=== PATIENT | male | born 1945 | race Caucasian/White ===

== ENCOUNTER → 2018-02-05 08:11 | Outpatient (POV) | payer MEDICARE, OTHER, SELFPAY | PROVIDERS: PCP Internal Medicine; Visit Provider Nurse Practitioner Acute Care | DX: Z00.00 Encounter for general adult medical examination without abnormal findings (principal) ==

== ENCOUNTER → 2018-09-07 10:58 | Outpatient (CLI) | payer MEDICARE, OTHER, SELFPAY ==
--- NOTE | 2018-09-07 11:00 | CT_ITS ---
CT angio head INDICATION: Severe headaches, evaluate for aneurysm ITS.REASON: HEADACHE ORDERING PHYSICIAN: Tae Nuñez PATIENT AGE: 73 years COMPARISON: None TECHNIQUE: Axial images are obtained following the intravenous administration of 100 mL of Isovue-370 contrast. Sagittal and coronal reformatted images are reviewed as well. All CT scans at the facility use one or more dose reduction, viz: automated exposure control, ma/kV adjustment per patient size (including targeted exams where dose is matched to indication, i.e. head), or iterative reconstruction technique. FINDINGS: No evidence of aneurysm, arteriovenous malformation, or major intracranial occlusive process. Anatomic variants include persistent origin of the posterior cerebral arteries and a hypoplastic A1 segment on the right. There is no evidence of sinus thrombosis. No enhancing lesions are evident. No midline shift or mass effect or hydrocephalus. There is a 2.5 cm retention cyst in the floor the left maxillary sinus and mild lobular mucosal thickening of the floor the right maxillary sinus. IMPRESSION: 1. Negative CTA of the brain. 2. Bilateral maxillary sinus disease
== END ==
PROVIDERS: PCP Internal Medicine; Visit Provider Internal Medicine
DX: R51 Headache (principal)
CPT/HCPCS: 70496; Q9967

== ENCOUNTER → 2019-03-20 13:49 | Outpatient (CLI) | payer MEDICARE, OTHER, SELFPAY ==
--- NOTE | 2019-03-20 | CA_ITS ---
PROCEDURE: 2-D M-mode and color Doppler study INDICATIONS FOR THE TEST: Chest pain COPDX Heart Murmur Tobacco SmokingEX Palpitations Fatigue Syncope Edema HypertensionXDiabetes Mellitus Rheumatic Fever SOBXDOEXObesityXHyperlipidemia Family History HD Additional History TLS/TDS SECONDARY TO MORBID OBESITY PATIENT INFORMATION HEIGHT: 70 WEIGHT:274 GENDER: Male B/P:126/83 2-D/M-MODE INTERPRETATION: 2-D MEASUREMENTS OBSERVED VALUES IN CMS Right Ventricular Dimension (RVDd) 1.3 Interventricular Septum (Thickness)(IVsd) .7 Left Ventricular Internal Dimensions(LVIDd) 3.0 Left Ventricular Posterior Wall (Thickness)(LVPWd) .7 Aortic Root 4.0 Aortic Cusp Separation 2.0 Left Atrial Dimensions (LAD) 2.5 2D 1. Left atrium is mildly enlarged, left ventricle is normal size, left ventricle wall thickness is upper limits of the normal, there is preserved left ventricular systolic function, visually estimated ejection fraction 55% with no regional wall motion abnormality. 2. The right atrium and right ventricle are mildly enlarged with normal contractility. 3. The aortic valve, mitral and tricuspid valvular grossly normal. 4. The pulmonic valve is poorly visualized. 5. No significant pericardial effusion noted. DOPPLER INTERROGATION: Doppler interrogation of the aortic, mitral and tricuspid valvular presence of mild mitral and tricuspid regurgitation, tricuspid regurgitation jet velocity is inadequate for calculation of the right ventricular systolic pressure, grade 1 diastolic dysfunction seen without tissue Doppler evidence of raised left atrial pressure. CONCLUSION: 1. Mild biatrial enlargement, normal left ventricular size, preserved left ventricular systolic function, visually estimated ejection fraction 55% with no regional wall motion abnormality, grade 1 diastolic dysfunction seen without tissue Doppler evidence of raised left atrial pressure. 2. Mild mitral and tricuspid regurgitation 3. No significant pericardial effusion noted.
[2019-03-20 15:30] VITALS: PULSE 74; PULSE 78
== END ==
PROVIDERS: PCP Internal Medicine; Visit Provider Internal Medicine
DX: R06.09 Other forms of dyspnea (principal); I10 Essential (primary) hypertension
CPT/HCPCS: 93306; 94060; 94640

== ENCOUNTER → 2019-05-07 09:54 | Outpatient (POV) | payer MEDICARE, OTHER, SELFPAY | PROVIDERS: Visit Provider Dermatology | DX: Z00.00 Encounter for general adult medical examination without abnormal findings (principal) ==

== ENCOUNTER → 2020-09-15 08:41 | Outpatient (POV) | payer MEDICARE, OTHER, SELFPAY | PROVIDERS: Visit Provider Dermatology | DX: Z00.00 Encounter for general adult medical examination without abnormal findings (principal) ==

== ENCOUNTER → 2020-09-16 09:54 | Outpatient (CLI) | payer MEDICARE, OTHER, SELFPAY ==
[2020-09-16 11:48] LABS: Coronavirus 19 IgG Antibody Negative (Negative); Coronavirus 19 IgM Antibody Negative (Negative)
== END ==
PROVIDERS: Visit Provider Internal Medicine Gastroenterology
DX: Z01.818 Encounter for other preprocedural examination (principal); Z12.11 Encounter for screening for malignant neoplasm of colon
CPT/HCPCS: 36415; 86328

== ENCOUNTER 2020-09-18 07:02 | Day surgery (SDC) | payer MEDICARE, OTHER, SELFPAY ==
[2020-09-10 15:12] VITALS: BMI 38.0
[2020-09-18] VITALS (8 sets, daily range): BP systolic 93–139; BP diastolic 46–83; PULSE 76–91; RESP 16–20; TEMP 36.2–36.7; O2SAT 90–98
--- NOTE | 2020-09-18 08:01 | HMH.ANESCL ---
[facility] Anesthesia Checklist - Patient Identification Patient Identification: Arm Band, Verbal (Name & ) - Structural Data Admitted From: Home Planned Operative Procedure/s: Colonoscopy Consent for Planned Operative Procedure(s) Verified: Yes Verified Documents: Surgical Consent, History and Physical - NPO Status Verified Time NPO: 00:00 - Chart Verification Results Verified: None - Additional verifications Anesthesia Reactions: No - Airway Assessment C-Spine Mobility Assessed: Yes TMJ Mobility Assessed: Yes Dentition: Good Dentition - Neurological Assessment Level of Consciousness: Awake, Alert, Appropriate, Follows Commands Hx Seizures: No Numbness or tingling in extremities: No - Anesthesia Plan Anesthesia Risk discussed: Yes Anesthesia Plan: Verified ASA Class: III Anesthesia Type: MAC [facility] History I have reviewed the patient's past medical history: Yes Medical History: Reports:: Chronic Obstructive Pulmonary Disease (COPD), Gastroesophageal Reflux Disease(GERD), Hyperlipidemia, Hypertension Denies:: Cancer, Diabetes Mellitus Type 1, Diabetes Mellitus Type 2, Internal Pacemaker, MRSA, Seizures *Have you ever received a pneumonia vaccine?: Yes *Have you received a flu vaccine this season?: Yes Other Medical History: Reports: Anemia Comment:: crohns, RAMIRO, obesity Anesthesia experience/problems:: None Other Surgeries: Yes: Appendectomy. No: Pacemaker Amputation: No Fractures: No - *Social History Last grade of school completed: Advanced degree Smoking Status: Former smoker Alcohol Intake: current Alcohol Intake Frequency:: holidays/special occasions only Substance Use Type: denies use *Occupational Status:: retired *Travel in the last 8 weeks: None Family Hx:: Other (NA)
--- NOTE | 2020-09-18 08:09 | HMH.PROC ---
[facility] Procedure Note Procedure Note:: Colonoscopy Procedure Report: Colonoscopy with cold snare polypectomy and cold biopsies Endoscopist: Kev Matias II, MD Referring physician: Tae Nuñez MD Date of Procedure: September 18, 2020 Equipment: Olympus 180 variable stiffness pediatric colonoscope Sedation: MAC sedation Indication: Mr. Silva is a 75-year-old gentleman here for routine screening/surveillance colonoscopy. He does have a chronic ulcerative colitis that was diagnosed more than 2 decades ago. He has been in remission with occasional flareups in the fall and the spring routinely. He had a colonoscopy in February 2014 at which time 5 polyps (tubular adenomas x5) were removed. He had a colonoscopy in March 2016 at which time 7 polyps (tubular adenomas x7) were removed. His last colonoscopy was March 2018 at which time 4 colon polyps (tubular adenomas x4) were removed. At that time he had complete remission of the ulcerative colitis and also had some extensive left-sided diverticulosis. The patient does take combined MiraLAX plus Konsyl powder mixed together routinely daily. He does have some occasional constipation. He also takes sulfasalazine and Imuran for maintenance of remission of his ulcerative colitis. He reports no rectal bleeding, abdominal pain or weight loss. He reports no family history of colon cancer. Procedure: Prior to the procedure, a history and physical exam was performed, and patient's medications and allergies were reviewed. The risks, benefits and alternatives of the sedation and procedure were discussed with the patient. All questions were answered and informed consent was obtained. The patient was brought to the procedure room. Patient identification and proposed procedure were verified by the physician and the nurse. The patient was placed in a left lateral decubitus position and the scope was passed under direct vision. Throughout the procedure, the patient's blood pressure, pulse, and oxygen saturations were monitored continuously. The colonoscopy was accomplished without difficulty. The patient tolerated the procedure well. Findings: On digital rectal examination there was normal rectal tone. There were no external hemorrhoids. There was some anal fibrosis. The prostate was 2+, smooth and symmetric without nodules. The colonoscope was introduced through the anal canal to the rectum and advanced to the cecum. The ileocecal valve and appendiceal orifice were identified. The scope was advanced a short distance into the ileum which appeared grossly normal. The scope was then withdrawn into the colon. There were 5 diminutive polyps (ascending x2 (3 and 4 mm), descending x2 (3 and 4 mm) and sigmoid x1 (2 mm)) which were all removed via cold snare polypectomy. The sigmoid polyp was removed but not retrieved due to being tiny. There were scattered diverticuli throughout the descending and sigmoid colon (LEFT colon). Within the rectosigmoid and rectum was some loss of vascular pattern and evidence of mild chronic proctocolitis/ulcerative proctitis. Cold biopsies were obtained. Upon retroflexion within the rectum there were grade 1-2 internal hemorrhoids. The preparation was excellent throughout with [place] Preparation Score of 9. The cecal time was 14 minutes. Impression: 1. Diminutive colonic polyps x5 2. Left-sided diverticulosis 3. Minimal chronic ulcerative proctitis 4. Mild anal fibrosis/stenosis with small internal hemorrhoids Plan: I will follow up the polyp histology. Based upon his chronic ulcerative colitis and history of adenomatous colon polyps, I would recommend repeat surveillance colonoscopy again in 3 years. I would continue the fiber bowel regimen (combined MiraLAX plus Konsyl mixed together p.o. every morning) on a long-term daily maintenance basis.
== END 2020-09-18 09:39 | disposition home or self-care (01) ==
LOC: OUTP 07:05
PROVIDERS: PCP Internal Medicine; Visit Provider Internal Medicine Gastroenterology
PROC: 0DJD8ZZ Inspection of Lower Intestinal Tract, Via Natural or Artificial Opening Endoscopic (ICD-10-PCS; CPT 45378; principal; 2020-09-18 08:00)
DX: Z12.11 Encounter for screening for malignant neoplasm of colon (principal); Z87.19 Personal history of other diseases of the digestive system; Z86.010 Personal history of colon polyps; K63.5 Polyp of colon; K57.30 Diverticulosis of large intestine without perforation or abscess without bleeding; K64.9 Unspecified hemorrhoids; K51.20 Ulcerative (chronic) proctitis without complications; K62.4 Stenosis of anus and rectum; J44.9 Chronic obstructive pulmonary disease, unspecified; K21.9 Gastro-esophageal reflux disease without esophagitis; E78.5 Hyperlipidemia, unspecified; I10 Essential (primary) hypertension
CPT/HCPCS: 45380; 45385; 88305

== ENCOUNTER → 2020-09-22 08:46 | Outpatient (POV) | payer MEDICARE, OTHER, SELFPAY | PROVIDERS: Visit Provider Dermatology | DX: Z00.00 Encounter for general adult medical examination without abnormal findings (principal) ==

== ENCOUNTER → 2021-06-15 08:37 | Outpatient (POV) | payer MEDICARE, OTHER, SELFPAY | PROVIDERS: Visit Provider Dermatology | DX: Z00.00 Encounter for general adult medical examination without abnormal findings (principal) ==

== ENCOUNTER → 2021-09-01 12:58 | Outpatient (CLI) | payer MEDICARE, OTHER, SELFPAY ==
[2021-09-01 13:34] LABS: Basophils % 0.6 % (0.1-2.0); Eosinophils # 0.2 K/mm3 (0.0-0.4); Eosinophils % 3.3 % (0.1-12.0); Hematocrit 42.4 % (42.0-52.0); Hemoglobin 13.6 g/dL (14.1-18.0); Lymphocytes # 0.8 K/mm3 (0.7-4.5); Lymphocytes % 13.3 % (10-50); Mean Corpuscular HGB Conc 32.2 g/dL (31.8-35.4); Mean Corpuscular Hemoglobin 34.7 pg (27.0-31.2); Mean Corpuscular Volume 107.7 fl (80-94); Mean Platelet Volume 10.1 fl (7.4-10.4); Monocytes # 0.5 K/mm3 (0.1-1.0); Monocytes % 8.4 % (1.7-9.3); Neutrophils # 4.5 K/mm3 (1.8-7.8); Neutrophils % 74.4 % (37.0-80.0); Platelet Count 168 K/mm3 (142-424); Red Blood Count 3.93 M/mm3 (4.60-6.20); Red Cell Distribution Width 13.3 % (11.5-17.5)
[2021-09-01 13:52] LABS: Alanine Aminotransferase 20 U/L (12-78); Albumin/Globulin Ratio 1.9 (1.1-1.8); Alkaline Phosphatase 66 U/L (38-126); Anion Gap 11.5 mEq/L (5-15); Aspartate Amino Transferase 31 U/L (17-59); Bilirubin,Total 0.5 mg/dl (0.2-1.3); Blood Urea Nitrogen 16 mg/dl (9-20); Calcium 9.1 mg/dl (8.4-10.2); Carbon Dioxide 29 mmol/L (22.0-30.0); Chloride 105 mmol/L (98-107); Chol/HDL Ratio 3.2 (1-3.5); Cholesterol 120 mg/dl (140-200); Estimated Glomerular Filt Rate 73 ml/min (>60); GFR (African American) 88 ML/MIN (>60); Globulin 2.1 g/dL (1.3-3.2); Glucose 87 mg/dl (74-100); HDL Cholesterol 37 mg/dl (40-60); Potassium 4.5 mmoL/L (3.5-5.1); Sodium 141 mmol/L (136-145); Total Protein,Serum 6.1 g/dl (6.3-8.2); Triglycerides 108 mg/dl (30-150); VLDL Cholesterol 22 mg/dL (0-40)
[2021-09-01 14:21] LABS: Prostate Specific Ag Screen 0.7 ng/ml (0.0-4.0)
== END ==
PROVIDERS: Visit Provider Internal Medicine
DX: I10 Essential (primary) hypertension (principal); E78.5 Hyperlipidemia, unspecified; D64.9 Anemia, unspecified; E53.8 Deficiency of other specified B group vitamins; N40.1 Benign prostatic hyperplasia with lower urinary tract symptoms; Z12.5 Encounter for screening for malignant neoplasm of prostate
CPT/HCPCS: 80053; 80061; 85025; G0103

== ENCOUNTER → 2021-09-02 08:47 | Outpatient (CLI) | payer MEDICARE, OTHER, SELFPAY ==
--- NOTE | 2021-09-02 08:52 | XR_ITS ---
PROCEDURE: XR SHOULDER RT MIN 2V CLINICAL INDICATION: DEVIN SHOULDER PAIN COMPARISON: Left shoulder same day FINDINGS: There is prominent osteophytic spurring of the AC joint superiorly. The clavicle is intact. There is no subacromial stenosis. The humeral head and glenoid appear normal no soft tissue calcifications. IMPRESSION: Prominent degenerate change of the AC joint more prominent than left side. Dictated by: Dr. Serafin Gurrola MD 09/02/2021 09:36 Dr. Serafin Gurrola MD in [place] 09/02/2021 09:36
--- NOTE | 2021-09-02 08:52 | XR_ITS ---
PROCEDURE: XR SHOULDER LT MIN 2V CLINICAL INDICATION: DEVIN SHOULDER PAIN COMPARISON: CR XR SHOULDER RT MIN 2V from 09/02/2021 FINDINGS: And spurring of the AC joint. The humeral head and glenoid appear normal. There is no subacromial stenosis. No soft tissue calcifications IMPRESSION: [id number] degenerate change of the AC joint otherwise negative left shoulder Dictated by: Dr. Serafin Gurrola MD 09/02/2021 09:35 Dr. Serafin Gurrola MD in [place] 09/02/2021 09:35
== END ==
PROVIDERS: PCP Internal Medicine; Visit Provider Internal Medicine
DX: M25.512 Pain in left shoulder (principal); M25.511 Pain in right shoulder
CPT/HCPCS: 73030

== ENCOUNTER 2021-11-08 11:20 | Emergency (ER) | payer MEDICARE, OTHER, SELFPAY ==
[2021-11-08 11:30] VITALS: BP 126/68; PULSE 68; RESP 21; O2SAT 98
[2021-11-08 11:37] VITALS: BMI 39.4
--- NOTE | 2021-11-08 11:40 | XR_ITS ---
PROCEDURE: XR CHEST 2V CLINICAL HISTORY: cp COMPARISON: CR CXR CHEST(2 VIEWS-NOT PORTABLE) from 04/10/2013 FINDINGS: The cardiomediastinal silhouette and pulmonary vascularity are within normal limits. The lungs are clear without infiltrates, suspicious nodules, or pleural effusions. Left hemidiaphragm is slightly elevated. This is not significantly changed. IMPRESSION: No acute findings. Dictated by: Callum Jackson MD 11/08/2021 12:25 Callum Jackson MD in [place] 11/08/2021 12:25
[2021-11-08 11:46] VITALS: BP 123/75; PULSE 85; RESP 15; TEMP 36.4; O2SAT 98; BMI 39.4
[2021-11-08 11:52] LABS: Basophils % 0.2 % (0.1-2.0); Eosinophils % 0.4 % (0.1-12.0); Hematocrit 45.2 % (42.0-52.0); Hemoglobin 14.5 g/dL (14.1-18.0); Lymphocytes # 1.4 K/mm3 (0.7-4.5); Lymphocytes % 14.3 % (10-50); Mean Corpuscular Hemoglobin 34.3 pg (27.0-31.2); Mean Corpuscular Volume 107.3 fl (80-94); Mean Platelet Volume 7.6 fl (7.4-10.4); Monocytes # 0.9 K/mm3 (0.1-1.0); Monocytes % 8.6 % (1.7-9.3); Neutrophils # 7.6 K/mm3 (1.8-7.8); Neutrophils % 76.5 % (37.0-80.0); Platelet Count 234 K/mm3 (142-424); Red Blood Count 4.21 M/mm3 (4.60-6.20); Red Cell Distribution Width 13.7 % (11.5-17.5)
[2021-11-08 11:53] LABS: Chloride 100 mmol/L (98-107); Potassium 3.4 mmoL/L (3.5-5.1); Sodium 140 mmol/L (136-145)
[2021-11-08 11:56] LABS: Anion Gap 8.4 mEq/L (5-15); Blood Urea Nitrogen 26 mg/dl (9-20); Calcium 9.4 mg/dl (8.4-10.2); Carbon Dioxide 35 mmol/L (22.0-30.0); Creatinine Clearance Estimated 87 mL/min (50-200); Estimated Glomerular Filt Rate 54 ml/min (>60); GFR (African American) 65 ML/MIN (>60); Glucose 90 mg/dl (74-100)
[2021-11-08 12:06] LABS: NT Pro Brain Natriuretic Pep. 59.5 pg/mL (0-450)
[2021-11-08 12:10] LABS: Troponin I < 0.01 ng/ml (0.00-0.034)
--- NOTE | 2021-11-08 12:22 | HMH.EDGENADL ---
ED Disposition Clinical Impression: Atypical chest pain Chest pain Qualifiers: Chest pain type: unspecified Qualified Code(s): R07.9 - Chest pain, unspecified Disposition: Home, Self-Care Condition on Discharge: Good Additional Instructions: Please follow with your primary care physician within the next 1 to 3 days. Continue all your medications as previously directed. Return to ED with new, worsening, concerning symptoms. Referrals: Tae Nuñez [Primary Care Provider] - - Critical Care Critical Care Time: No Attestation: On 11/08/21, the high probability of a clinically significant, sudden or life threatening deterioration of the following system(s) required my full and direct attention, intervention and personal management. The time I documented below is in addition to time spent performing reported procedures but includes the following listed in this critical care notation. Medical Decision Making - Medical Records Medical records reviewed: Yes: I reviewed the patient's medical records. - Christo Inquiry Pt receiving controlled substance: No Vital Signs: 11/08/21 11:30 11/08/21 11:46 11/08/21 14:09 Temperature 97.6 F 97.8 F Temperature Source Oral Oral Pulse Rate 68 81 Pulse Rate [Left Radial] 85 Respiratory Rate 21 15 16 Blood Pressure 126/68 121/77 Blood Pressure [Right Arm] 123/75 Blood Pressure Mean 75 Blood Pressure Mean [Right Arm] 91 02 Sat by Pulse Oximetry 98 98 Oxygen Delivery Method Room Air Room Air - Lab Data Lab Results 11/08/21 11:34: WBC 10.0, RBC 4.21 L, Hgb 14.5, Hct 45.2, MCV 107.3 H, MCH 34.3 H, MCHC 32.0, RDW 13.7, Plt Count 234, MPV 7.6, Neut % (Auto) 76.5, Lymph % (Auto) 14.3, [place] % (Auto) 8.6, Eos % (Auto) 0.4, Baso % (Auto) 0.2, Neut # (Auto) 7.6, Lymph # (Auto) 1.4, [place] # (Auto) 0.9, Eos # (Auto) 0.0, Baso # (Auto) 0.0 11/08/21 11:34: Sodium 140, Potassium 3.4 L, Chloride 100, Carbon Dioxide 35 H, Anion Gap 8.4, BUN 26 H, Creatinine 1.30 H, Estimated Creat Clear 87, Estimated GFR 54 L, Est GFR ( Amer) 65, Glucose 90, Calcium 9.4, Troponin I < 0.01 11/08/21 11:34: NT-Pro-B Natriuret Pep 59.5 11/08/21 12:20: SARS-CoV-2 (PCR) Not detected, Influenza A Untype (PCR) Not detected, Influenza Type B (PCR) Not detected Result diagrams: 11/08/21 11:34 11/08/21 11:34 Orders (Tests/Meds): ORDERS Category Date Time Status Troponin I Q3H Lab 11/08/21 14:45 Ordered Troponin I Q3H Lab 11/08/21 17:45 Ordered - Radiology Data #1 Image(s): Chest Image Reviewed: Yes I reviewed the patient's radiology results FINDINGS: The cardiomediastinal silhouette and pulmonary vascularity are within normal limits. The lungs are clear without infiltrates, suspicious nodules, or pleural effusions. Left hemidiaphragm is slightly elevated. This is not significantly changed. IMPRESSION: No acute findings. - ECG Data Tracing #1 Personally interpreted this EKG. Normal sinus rhythm with a rate of 85 bpm, QRS duration 96 ms, QTC 442 ms, normal axis, no ST elevation, no T wave inversions, no ST depression. Medical Decision Narrative: 76-year-old male presenting with chest pain. Differential diagnoses include ACS, nontraumatic chest pain, pneumonia, COVID-19, COPD exacerbation. Given this work-up will include chest x-ray, EKG, CBC, BMP, CMP, troponins. Vital signs currently stable, patient is afebrile, satting well on room air. See ED course for EKG interpretation. Chest x-ray with no acute cardiopulmonary abnormalities. Labs relatively reassuring and unremarkable, mild degree of renal insufficiency, initial troponin less than 0.01. Patient remained stable, not experiencing any chest pain, vital signs stable. This point he is safe for discharge, clinically have low suspicion for cardiac etiology of his chest pain. General Adult HPI - General Chief complaint: Chest Pain Stated complaint: chest fluttering, arms numb, rapid heart
[2021-11-08 13:09] LABS: Coronavirus 19, PCR Not Detected (NotDetected); Influenza A, PCR Not Detected (NotDetected); Influenza B, PCR Not Detected (NotDetected)
[2021-11-08 14:09] VITALS: BP 121/77; PULSE 81; RESP 16; TEMP 36.6; O2SAT 98
== END 2021-11-08 14:23 | disposition home or self-care (01) ==
PROVIDERS: Emergency Provider Emergency Medicine; PCP Internal Medicine
DX: R07.89 Other chest pain (principal); R20.2 Paresthesia of skin; J44.9 Chronic obstructive pulmonary disease, unspecified; K21.9 Gastro-esophageal reflux disease without esophagitis; E78.5 Hyperlipidemia, unspecified; I10 Essential (primary) hypertension; K50.90 Crohn's disease, unspecified, without complications; E66.9 Obesity, unspecified; Z68.39 Body mass index [BMI] 39.0-39.9, adult; Z20.822 Contact with and (suspected) exposure to COVID-19; R06.00 Dyspnea, unspecified
CPT/HCPCS: 71046; 80048; 83880; 84484; 85025; 99283; C9803; U0003; U0005

== ENCOUNTER → 2022-01-18 08:30 | Outpatient (POV) | payer MEDICARE, OTHER, SELFPAY | PROVIDERS: Visit Provider Dermatology | DX: Z00.00 Encounter for general adult medical examination without abnormal findings (principal) ==

== ENCOUNTER → 2022-01-21 10:33 | Outpatient (CLI) | payer MEDICARE, OTHER, SELFPAY | PROVIDERS: PCP Internal Medicine; Visit Provider Internal Medicine | DX: Z20.822 Contact with and (suspected) exposure to COVID-19 (principal) | CPT/HCPCS: 87275; 87276; C9803; U0003; U0005 ==

== ENCOUNTER 2022-02-28 18:27 | Emergency (ER) | payer MEDICARE, OTHER, SELFPAY ==
--- NOTE | 2022-02-28 18:21 | ECG_ITS ---
APPROVED REPORT Exam: Resting ECG HR:169 bpm ECG Measurements Heart Rate 169 AXES QRSd 125 QRS 43 QT 266 T 50 QTc 358 Conclusion UNCERTAIN REGULAR RHYTHM MODERATE INTRAVENTRICULAR CONDUCTION DELAY [110+ ms QRS DURATION] MODERATE ST DEPRESSION [0.05+ mV ST DEPRESSION] CRITICAL TEST RESULT UNCONFIRMED REPORT Electronically signed by : Josias Stewart MD 03/02/2022 17:36:02
[2022-02-28 18:27] VITALS: BP 115/69; PULSE 171; RESP 24; TEMP 37; O2SAT 88; BMI 39.4
[2022-02-28 18:37] VITALS: BP 119/68; PULSE 83; RESP 25; O2SAT 98
[2022-02-28 18:41] VITALS: BP 115/69; PULSE 83; RESP 24; O2SAT 96
--- NOTE | 2022-02-28 18:41 | XR_ITS ---
PROCEDURE INFORMATION: Exam: XR Chest Exam date and time: 02/28/2022 6:59 PM Age: 77 years old Clinical indication: Other: Patient stated heart beating really hard. ; Patient HX: Patient stated heart was beating too hard. Hurt. ; Additional info: Chest pain TECHNIQUE: Imaging protocol: XR of the chest. Views: 1 view. COMPARISON: CR XR CHEST 2V 11/08/2021 11:53 AM FINDINGS: Lungs: Unremarkable. No consolidation. Pleural spaces: Unremarkable. No pleural effusion. No pneumothorax. Heart/Mediastinum: Unremarkable. No cardiomegaly. Ectasia of the aortic arch. Diaphragm: Persistent eventration of the left hemidiaphragm. Findings stable. Bones/joints: Unremarkable. IMPRESSION: No evidence of acute cardiopulmonary disease.
--- NOTE | 2022-02-28 18:41 | HMH.EDGENADL ---
ED Disposition Clinical Impression: SVT (supraventricular tachycardia) Disposition: Home, Self-Care Condition on Discharge: Good Additional Instructions: Please order Holter monitor. Return to the emergency department for any new or concerning symptoms. Recommend close follow-up with a on site wastewater systems technician, he can investigate Holter monitor and see what the rhythms are. Avoid caffeine as this can overstimulate your heart, as well as intense exercise. If you have repeat of symptoms return to the emergency department. Referrals: Provider,Referral, [Primary Care Provider] - - Critical Care Critical Care Time: Yes Attestation: On , the high probability of a clinically significant, sudden or life threatening deterioration of the following system(s) required my full and direct attention, intervention and personal management. The time I documented below is in addition to time spent performing reported procedures but includes the following listed in this critical care notation. Vital system(s) involved:: Circulatory Failure My critical care processes included: Assessment & monitoring of V/S, Initial and Re-exams, Data Review/Interpretation Medical Decision Making - Medical Records Medical records reviewed: Yes: I reviewed the patient's medical records. - Christo Inquiry Pt receiving controlled substance: No Vital Signs: 02/28/22 18:27 02/28/22 18:37 02/28/22 18:41 Temperature 98.6 F Temperature Source Oral Pulse Rate 83 83 Pulse Rate [Left Radial] 171 H Respiratory Rate 24 25 H 24 Blood Pressure 119/68 115/69 Blood Pressure [Right Arm] 115/69 Blood Pressure Mean 81 82 Blood Pressure Mean [Right Arm] 84 Blood Pressure Source [Right Arm] Automatic Cuff Blood Pressure Position [Right Arm] Sitting 02 Sat by Pulse Oximetry 88 L 98 96 Oxygen Delivery Method Room Air 02/28/22 18:45 02/28/22 18:51 Temperature Temperature Source Pulse Rate 80 81 Pulse Rate [Left Radial] Respiratory Rate 23 24 Blood Pressure 118/68 110/64 Blood Pressure [Right Arm] Blood Pressure Mean 77 75 Blood Pressure Mean [Right Arm] Blood Pressure Source [Right Arm] Blood Pressure Position [Right Arm] 02 Sat by Pulse Oximetry 95 96 Oxygen Delivery Method - Lab Data Lab results reviewed: Yes: I reviewed the patient's lab results. Lab Results 02/28/22 18:28: WBC 8.3, RBC 4.22 L, Hgb 14.6, Hct 46.0, MCV 109.1 H, MCH 34.7 H, MCHC 31.8, RDW 14.0, Plt Count 218, MPV 8.1, Neut % (Auto) 71.8, Lymph % (Auto) 16.3, [place] % (Auto) 10.4 H, Eos % (Auto) 0.7, Baso % (Auto) 0.8, Neut # (Auto) 6.0, Lymph # (Auto) 1.4, [place] # (Auto) 0.9, Eos # (Auto) 0.1, Baso # (Auto) 0.1 02/28/22 18:28: Sodium 139, Potassium 4.0, Chloride 102, Carbon Dioxide 32 H, Anion Gap 9.0, BUN 19, Creatinine 1.10, Estimated Creat Clear 101, Estimated GFR 65, Est GFR ( Amer) 79, Glucose 110 H, Calcium 9.0, Magnesium 2.0, Total Bilirubin 0.4, AST 41, ALT 43, Alkaline Phosphatase 97, Troponin I < 0.01, Total Protein 6.5, Albumin 4.1, Globulin 2.4, Albumin/Globulin Ratio 1.7 Result diagrams: 02/28/22 18:28 02/28/22 18:28 Orders (Tests/Meds): ORDERS Category Date Time Status XR chest portable Stat Exams 02/28/22 18:41 Taken BNP [Brain Natriuretic Peptide] Stat Lab 02/28/22 18:43 Ordered Troponin I Q3H Lab 02/28/22 21:45 Ordered Troponin I Q3H Lab 03/01/22 00:45 Ordered Medical Decision Narrative: Patient is a 77-year-old gentleman presented to emergency department with chief complaint of shortness of air and heart palpitations. Differential diagnosis for this patient includes SVT, multiple PVCs, atrial fibrillation, multifocal atrial tachycardia, ACS, pneumonia among others. Given this plan to order EKG, CBC, CMP, troponin, chest x-ray. EKG showed a regular rhythm without P waves, most likely SVT. Given this placed on the patient, and vagal maneuvers were attempted. Patient did not have resolution of her arrhythmia with vagal ma
[2022-02-28 18:45] VITALS: BP 118/68; PULSE 80; RESP 23; O2SAT 95
[2022-02-28 18:51] VITALS: BP 110/64; PULSE 81; RESP 24; O2SAT 96
[2022-02-28 18:56] LABS: Basophils # 0.1 K/mm3 (0-0.2); Basophils % 0.8 % (0.1-2.0); Eosinophils # 0.1 K/mm3 (0.0-0.4); Eosinophils % 0.7 % (0.1-12.0); Hemoglobin 14.6 g/dL (14.1-18.0); Lymphocytes # 1.4 K/mm3 (0.7-4.5); Lymphocytes % 16.3 % (10-50); Mean Corpuscular HGB Conc 31.8 g/dL (31.8-35.4); Mean Corpuscular Hemoglobin 34.7 pg (27.0-31.2); Mean Corpuscular Volume 109.1 fl (80-94); Mean Platelet Volume 8.1 fl (7.4-10.4); Monocytes # 0.9 K/mm3 (0.1-1.0); Monocytes % 10.4 % (1.7-9.3); Neutrophils % 71.8 % (37.0-80.0); Platelet Count 218 K/mm3 (142-424); Red Blood Count 4.22 M/mm3 (4.60-6.20); White Blood Count 8.3 K/mm3 (4.8-10.8)
[2022-02-28 18:58] LABS: Chloride 102 mmol/L (98-107)
[2022-02-28 18:59] LABS: Sodium 139 mmol/L (136-145)
[2022-02-28 19:01] LABS: Alanine Aminotransferase 43 U/L (12-78); Albumin Level 4.1 g/dl (3.5-5.0); Alkaline Phosphatase 97 U/L (38-126); Aspartate Amino Transferase 41 U/L (17-59); Bilirubin,Total 0.4 mg/dl (0.2-1.3); Blood Urea Nitrogen 19 mg/dl (9-20); Carbon Dioxide 32 mmol/L (22.0-30.0); Creatinine Clearance Estimated 101 mL/min (50-200); Estimated Glomerular Filt Rate 65 ml/min (>60); GFR (African American) 79 ML/MIN (>60)
[2022-02-28 19:02] LABS: Albumin/Globulin Ratio 1.7 (1.1-1.8); Globulin 2.4 g/dL (1.3-3.2); Glucose 110 mg/dl (74-100); Total Protein,Serum 6.5 g/dl (6.3-8.2)
[2022-02-28 19:14] LABS: Troponin I < 0.01 ng/ml (0.00-0.034)
[2022-02-28 19:53] VITALS: BP 110/64; PULSE 80; RESP 18; TEMP 36.7; O2SAT 99
[2022-02-28 20:07] LABS: NT Pro Brain Natriuretic Pep. 69.1 pg/mL (0-450)
== END 2022-02-28 20:02 | disposition home or self-care (01) ==
PROVIDERS: Emergency Provider Emergency Medicine; PCP Internal Medicine
DX: R07.89 Other chest pain (principal); I47.1 Supraventricular tachycardia; I48.0 Paroxysmal atrial fibrillation; J44.9 Chronic obstructive pulmonary disease, unspecified; I10 Essential (primary) hypertension; E78.5 Hyperlipidemia, unspecified; K21.9 Gastro-esophageal reflux disease without esophagitis; Z87.891 Personal history of nicotine dependence
CPT/HCPCS: 71045; 80053; 83735; 83880; 84484; 85025; 93005; 93225; 93226; 96360; 96361; 96374; 99284

== ENCOUNTER → 2022-03-07 09:45 | Outpatient (CLI) | payer MEDICARE, OTHER, SELFPAY ==
[2022-03-07 10:22] LABS: Basophils % 0.3 % (0.1-2.0); Eosinophils # 0.1 K/mm3 (0.0-0.4); Eosinophils % 0.5 % (0.1-12.0); Hematocrit 47.1 % (42.0-52.0); Lymphocytes # 1.3 K/mm3 (0.7-4.5); Lymphocytes % 12.4 % (10-50); Mean Corpuscular HGB Conc 31.9 g/dL (31.8-35.4); Mean Corpuscular Volume 109.5 fl (80-94); Mean Platelet Volume 8.3 fl (7.4-10.4); Monocytes # 0.9 K/mm3 (0.1-1.0); Monocytes % 8.2 % (1.7-9.3); Neutrophils # 8.5 K/mm3 (1.8-7.8); Neutrophils % 78.6 % (37.0-80.0); Platelet Count 204 K/mm3 (142-424); White Blood Count 10.9 K/mm3 (4.8-10.8)
[2022-03-07 10:53] LABS: Alanine Aminotransferase 35 U/L (12-78); Albumin Level 4.3 g/dl (3.5-5.0); Alkaline Phosphatase 68 U/L (38-126); Anion Gap 9.6 mEq/L (5-15); Aspartate Amino Transferase 28 U/L (17-59); Bilirubin,Total 0.6 mg/dl (0.2-1.3); Blood Urea Nitrogen 21 mg/dl (9-20); Calcium 9.4 mg/dl (8.4-10.2); Carbon Dioxide 33 mmol/L (22.0-30.0); Chloride 103 mmol/L (98-107); Chol/HDL Ratio 2.4 (1-3.5); Cholesterol 161 mg/dl (140-200); Estimated Glomerular Filt Rate 65 ml/min (>60); GFR (African American) 79 ML/MIN (>60); Globulin 2.2 g/dL (1.3-3.2); Glucose 90 mg/dl (74-100); HDL Cholesterol 68 mg/dl (40-60); Potassium 4.6 mmoL/L (3.5-5.1); Sodium 141 mmol/L (136-145); Total Protein,Serum 6.5 g/dl (6.3-8.2); Triglycerides 107 mg/dl (30-150); VLDL Cholesterol 21 mg/dL (0-40)
[2022-03-07 11:03] LABS: Direct LDL Cholesterol 65.44 mg/dL (100-129)
== END ==
PROVIDERS: Visit Provider Internal Medicine
DX: I10 Essential (primary) hypertension (principal); E78.5 Hyperlipidemia, unspecified; I51.9 Heart disease, unspecified; D64.9 Anemia, unspecified
CPT/HCPCS: 36415; 80053; 80061; 85025

== ENCOUNTER → 2022-05-10 08:03 | Outpatient (CLI) | payer MEDICARE, OTHER, SELFPAY ==
[2022-05-10 08:57] LABS: Anion Gap 11.1 mEq/L (5-15); Blood Urea Nitrogen 26 mg/dl (9-20); Calcium 9.5 mg/dl (8.4-10.2); Carbon Dioxide 33 mmol/L (22.0-30.0); Chloride 101 mmol/L (98-107); Estimated Glomerular Filt Rate 54 ml/min (>60); GFR (African American) 65 ML/MIN (>60); Glucose 116 mg/dl (74-100); Potassium 4.1 mmoL/L (3.5-5.1); Sodium 141 mmol/L (136-145)
== END ==
PROVIDERS: PCP Internal Medicine; Visit Provider Internal Medicine
DX: I10 Essential (primary) hypertension (principal); R60.9 Edema, unspecified
CPT/HCPCS: 36415; 80048

== ENCOUNTER → 2022-08-02 09:06 | Outpatient (POV) | payer MEDICARE, OTHER, SELFPAY | PROVIDERS: Visit Provider Dermatology | DX: Z00.00 Encounter for general adult medical examination without abnormal findings (principal) ==

== ENCOUNTER → 2022-09-06 14:53 | Outpatient (CLI) | payer MEDICARE, OTHER, SELFPAY ==
[2022-09-06 17:39] LABS: Basophils # 0.3 K/mm3 (0-0.2); Basophils % 3.8 % (0.1-2.0); Eosinophils # 0.2 K/mm3 (0.0-0.4); Eosinophils % 2.4 % (0.1-12.0); Hematocrit 45.3 % (42.0-52.0); Hemoglobin 12.4 g/dL (14.1-18.0); Lymphocytes # 1.4 K/mm3 (0.7-4.5); Lymphocytes % 16.4 % (10-50); Mean Corpuscular HGB Conc 27.4 g/dL (31.8-35.4); Mean Corpuscular Hemoglobin 33.7 pg (27.0-31.2); Mean Corpuscular Volume 122.9 fl (80-94); Mean Platelet Volume 23.4 fl (7.4-10.4); Monocytes # 0.9 K/mm3 (0.1-1.0); Monocytes % 10.6 % (1.7-9.3); Neutrophils # 5.9 K/mm3 (1.8-7.8); Neutrophils % 70.6 % (37.0-80.0); Platelet Count 123 K/mm3 (142-424); Red Blood Count 3.68 M/mm3 (4.60-6.20); Red Cell Distribution Width 17.3 % (11.5-17.5); White Blood Count 8.3 K/mm3 (4.8-10.8)
[2022-09-06 18:54] LABS: Alanine Aminotransferase 21 U/L (12-78); Albumin Level 4.1 g/dl (3.5-5.0); Albumin/Globulin Ratio 1.9 (1.1-1.8); Alkaline Phosphatase 102 U/L (38-126); Anion Gap 17.1 mEq/L (5-15); Aspartate Amino Transferase 31 U/L (17-59); Bilirubin,Total 0.4 mg/dl (0.2-1.3); Blood Urea Nitrogen 26 mg/dl (9-20); Calcium 8.9 mg/dl (8.4-10.2); Carbon Dioxide 30 mmol/L (22.0-30.0); Chloride 100 mmol/L (98-107); Chol/HDL Ratio 3.4 (1-3.5); Cholesterol 117 mg/dl (140-200); Estimated Glomerular Filt Rate 49 ml/min (>60); GFR (African American) 60 ML/MIN (>60); Globulin 2.2 g/dL (1.3-3.2); Glucose 83 mg/dl (74-100); HDL Cholesterol 34 mg/dl (40-60); Potassium 4.1 mmoL/L (3.5-5.1); Sodium 143 mmol/L (136-145); Total Protein,Serum 6.3 g/dl (6.3-8.2); Triglycerides 130 mg/dl (30-150); VLDL Cholesterol 26 mg/dL (0-40)
[2022-09-06 19:05] LABS: Direct LDL Cholesterol 55.34 mg/dL (100-129)
== END ==
PROVIDERS: PCP Internal Medicine; Visit Provider Internal Medicine
DX: I10 Essential (primary) hypertension (principal); E78.5 Hyperlipidemia, unspecified; D64.9 Anemia, unspecified; J44.9 Chronic obstructive pulmonary disease, unspecified; M15.0 Primary generalized (osteo)arthritis
CPT/HCPCS: 80053; 80061; 85025

== ENCOUNTER → 2022-10-13 09:29 | Outpatient (CLI) | payer MEDICARE, OTHER, SELFPAY ==
--- NOTE | 2022-10-13 09:33 | XR_ITS ---
FINAL REPORT CLINICAL HISTORY: DEVIN SHOULDER PAIN COMPARISON: August 2021 FINDINGS: 3 views of the right shoulder were obtained. There is no acute fracture or dislocation. There are mild hypertrophic changes at the AC joint. Note is made of calcified lymph nodes in the right hilar region. IMPRESSION: No acute process. Reviewed, Interpreted and Dictated by Bhupendra Briones MD Transcribed by Doc Schuler Authenticated and [facility]
--- NOTE | 2022-10-13 09:33 | XR_ITS ---
FINAL REPORT CLINICAL HISTORY: DEVIN SHOULDER PAIN COMPARISON: August 2021 FINDINGS: 3 views of the left shoulder were obtained. There is no acute fracture or dislocation. There are mild hypertrophic changes at the AC joint. There are no soft tissue abnormalities. IMPRESSION: No acute process. Reviewed, Interpreted and Dictated by Bhupendra Briones MD Transcribed by Doc Schuler Authenticated and [facility]
== END ==
PROVIDERS: PCP Internal Medicine; Visit Provider Internal Medicine
DX: M25.511 Pain in right shoulder (principal); M25.512 Pain in left shoulder
CPT/HCPCS: 73030

== ENCOUNTER 2023-01-29 19:10 | Emergency (ER) | payer MEDICARE, OTHER, SELFPAY ==
[2023-01-29 19:11] VITALS: BP 115/64; PULSE 78; RESP 19; TEMP 36.8; O2SAT 97; BMI 37.5
[2023-01-29 19:16] VITALS: BP 119/69; O2SAT 95
[2023-01-29 19:25] VITALS: BMI 37.5
--- NOTE | 2023-01-29 19:26 | XR_ITS ---
PROCEDURE INFORMATION: Exam: XR Left Clavicle, Complete Exam date and time: 01/29/2023 7:33 PM Age: 77 years old Clinical indication: Injury or trauma; Fall; Additional info: Fall, pain TECHNIQUE: Imaging protocol: Radiologic exam of the left clavicle. Complete exam. Views: Any number of views. COMPARISON: CR XR SHOULDER LT MIN 2V 10/13/2022 9:34 AM FINDINGS: Bones/joints: AC joint arthrosis. No acute fracture or dislocation. Soft tissues: Normal. IMPRESSION: No acute findings.
--- NOTE | 2023-01-29 19:26 | XR_ITS ---
PROCEDURE INFORMATION: Exam: XR Left Hip Exam date and time: 01/29/2023 7:30 PM Age: 77 years old Clinical indication: Injury or trauma; Fall; Additional info: Fall, pain TECHNIQUE: Imaging protocol: Radiologic exam of the left hip. Views: 2 or 3 views hip with pelvis when performed. COMPARISON: No relevant prior studies available. FINDINGS: Bones/joints: Mild degenerative changes. No acute fracture. Soft tissues: Unremarkable. IMPRESSION: No acute findings.
--- NOTE | 2023-01-29 19:26 | XR_ITS ---
PROCEDURE INFORMATION: Exam: XR Left Humerus Exam date and time: 01/29/2023 7:38 PM Age: 77 years old Clinical indication: Injury or trauma; Fall; Additional info: Fall, pain TECHNIQUE: Imaging protocol: Radiologic exam of the left humerus. Views: 2 or more views. COMPARISON: CR Shoulder L 01/29/2023 7:37 PM FINDINGS: Bones/joints: Chronic appearing cortical thickening of the mid lateral humerus. No acute fracture or dislocation. Soft tissues: Normal. IMPRESSION: Chronic changes without acute process.
--- NOTE | 2023-01-29 19:26 | XR_ITS ---
PROCEDURE INFORMATION: Exam: XR Chest Exam date and time: 01/29/2023 7:43 PM Age: 77 years old Clinical indication: Injury or trauma; Fall; Additional info: Fall, pain TECHNIQUE: Imaging protocol: Radiologic exam of the chest. Views: 4 or more views. COMPARISON: CR XR CHEST PORTABLE 02/28/2022 6:59 PM FINDINGS: Lungs: Elevation of the left hemidiaphragm which appears stable No consolidation. Pleural spaces: No pleural effusion. Heart/Mediastinum: Cardiomediastinal contours are within normal limits. Bones/joints: No acute fracture. IMPRESSION: No acute findings.
--- NOTE | 2023-01-29 19:26 | XR_ITS ---
PROCEDURE INFORMATION: Exam: XR Left Shoulder Exam date and time: 01/29/2023 7:37 PM Age: 77 years old Clinical indication: Injury or trauma; Fall; Additional info: Fall, pain TECHNIQUE: Imaging protocol: Radiologic exam of the left shoulder. Views: 2 or more views. COMPARISON: CR XR SHOULDER LT MIN 2V 10/13/2022 9:34 AM FINDINGS: Bones/joints: AC joint arthrosis. No acute fracture or dislocation. Soft tissues: Normal. IMPRESSION: Chronic changes without acute process.
[2023-01-29 19:30] VITALS: BP 115/64; PULSE 88; O2SAT 94
--- NOTE | 2023-01-29 19:35 | PC.NURSE ---
Pt gone to RAD via wheelchair
--- NOTE | 2023-01-29 19:58 | PC.NURSE ---
Pt back from RAD
[2023-01-29 20:00] VITALS: BP 140/79; PULSE 85; O2SAT 97
--- NOTE | 2023-01-29 20:13 | HMH.EDGENADL ---
Discharge Plan Disposition Patient Disposition: Home, Self-Care Condition: Good Prescriptions Prescriptions: No Action furosemide 40 MG Tablet 40 mg PO DAILY sulfasalazine 500 MG Tablet 2,000 mg PO BID polyethylene glycol 3350 [Miralax] 17 GM Powd.Pack 17 g PO DAILY azathioprine 50 MG Tablet 100 mg PO DAILY esomeprazole magnesium [Nexium] 40 MG Capsule.Dr 40 mg PO DAILY valsartan [Diovan] 160 MG Tablet 160 mg PO DAILY coenzyme Q10 50 MG Tab.Chew 50 mg PO DAILY potassium chloride 10 MEQ tablet extended release 10 meq PO DAILY rosuvastatin 40 MG tablet 40 mg PO DAILY vitamins A,C,A-ojzr-zucxmr 1 EACH tablet 1 each PO BID sencyvpp-scd-ZZ-lycopen-lutein 1 EACH tablet 1 each PO DAILY Referrals Follow up/Referrals: Tae Nuñez MD [Primary Care Provider] - See instructions Activity Restrictions/Add. Instructions Additional Instructions/Restrictions: Sling until seen by orthopedic physician. Call your orthopedic doctor tomorrow morning to make an appointment to be seen this week. You may use your Tylenol 3 for pain. Ice 20 minutes 4 times a day for pain or swelling. Clinical Impressions Clinical Impression: Injury of left rotator cuff, Fall Instructions Patient Instructions: How to Use a Sling, DI for Rotator Cuff Injury, How to Prevent Falls Discharge ED Provider: Sudheer Bundy General Adult HPI General Chief complaint: Fall Stated complaint: [id number] Fall LT shoulder inj Time Seen by Provider: 01/29/23 19:36 Mode of Arrival: Family Vehicle Source of Information: Patient Limitations: No Limitations Description of Symptoms (Recalled from ER Triage Doc. by RN): Pt c/o L shoulder pain with difficulty moving after a fall while taking the trash out tonight. He also c/o mild L hip pain. [employer] Radial pulses strong and WNL. Small abrasions to knees. Pt denies any LOC or hitting his head during the fall. Denies taking any blood thinners. Denies any ABD pain, chest pain, or pain with inspiration. History of Present Illness HPI narrative: Patient complains of injuries from a fall. He was taking the trash out tonight and it was heavier than usual, pulling him over so that he landed on his left side. Primarily states that he has pain in his left shoulder. It hurts to try and raise his arm. Denies any injury to head or neck. He says he has some scrapes on his lateral left thigh. Otherwise no injuries. He is able to ambulate without difficulty. He has an orthopedic doctor in [place], Dr. Aleman, that has injected his right shoulder previously Related Data Home Medications Medication Instructions Recorded Confirmed azathioprine 50 mg tablet 100 mg PO DAILY UC 03/23/18 09/18/20 coenzyme Q10 50 mg chewable tablet 50 mg PO DAILY Supplement 03/23/18 09/18/20 esomeprazole magnesium 40 mg 40 mg PO DAILY stomach 03/23/18 09/18/20 capsule,delayed release (Nexium) furosemide 40 mg tablet 40 mg PO DAILY Fluid 03/23/18 09/18/20 polyethylene glycol 3350 17 gram 17 g PO DAILY stomach 03/23/18 09/18/20 oral powder packet (Miralax) sulfasalazine 500 mg tablet 2,000 mg PO BID UC 03/23/18 09/18/20 valsartan 160 mg tablet (Diovan) 160 mg PO DAILY blood pressure 03/23/18 09/18/20 txfbvxub-ykh-kaxji acid 300 1 each PO DAILY Supplement 09/10/20 09/18/20 mcg-lycopene 600 mcg-lutein 300 mcg tablet potassium chloride 10 mEq 10 meq PO DAILY Supplement 09/10/20 09/18/20 tablet,extended release rosuvastatin 40 mg tablet 40 mg PO DAILY chlesterol 09/10/20 09/18/20 vitamins A,C,T-qpqn-icklor 2,148 1 each PO BID eyes 09/10/20 09/18/20 mcg-113 mg-45 mg-17.4 mg tablet Allergies Allergy/AdvReac Type Severity Reaction Status Date / Time No Known Allergies Allergy Verified 09/10/20 15:13 [facility] Disclaimer: The information contained in this section may have been updated after the patient was seen, as this information can be updated by
--- NOTE | 2023-01-29 20:21 | PC.NURSE ---
Called radiology to have a disc made
--- NOTE | 2023-01-29 20:24 | PC.NURSE ---
Dr. Bundy at to update pt on scan results
[2023-01-29 20:31] VITALS: BP 118/72; PULSE 76; RESP 18; TEMP 36.8; O2SAT 96
== END 2023-01-29 20:52 | disposition home or self-care (01) ==
PROVIDERS: Emergency Provider Emergency Medicine; PCP Internal Medicine
DX: S46.002A Unspecified injury of muscle(s) and tendon(s) of the rotator cuff of left shoulder, initial encounter (principal); W19.XXXA Unspecified fall, initial encounter; Z87.891 Personal history of nicotine dependence
CPT/HCPCS: 71045; 73000; 73030; 73060; 73502; 99284; 99285

== ENCOUNTER 2023-03-03 08:00 | Outpatient (RCR) | payer MEDICARE, SELFPAY | END 2023-03-03 09:10 | disposition home or self-care (01) | LOC: OT 08:00 | PROVIDERS: PCP Internal Medicine; Visit Provider Internal Medicine | DX: M25.512 Pain in left shoulder (principal); S46.912A Strain of unspecified muscle, fascia and tendon at shoulder and upper arm level, left arm, initial encounter; S40.012A Contusion of left shoulder, initial encounter | CPT/HCPCS: 97010; 97014; 97110; 97140; 97166; 97530; G0283 ==

== ENCOUNTER → 2023-03-08 12:29 | Outpatient (CLI) | payer MEDICARE, SELFPAY ==
[2023-03-08 14:15] LABS: Basophils % 0.4 % (0.1-2.0); Eosinophils # 0.2 K/mm3 (0.0-0.4); Eosinophils % 2.5 % (0.1-12.0); Hematocrit 43.3 % (42.0-52.0); Hemoglobin 13.3 g/dL (14.1-18.0); Lymphocytes # 0.7 K/mm3 (0.7-4.5); Lymphocytes % 12.4 % (10-50); Mean Corpuscular HGB Conc 30.7 g/dL (31.8-35.4); Mean Corpuscular Hemoglobin 32.9 pg (27.0-31.2); Mean Corpuscular Volume 107.2 fl (80-94); Mean Platelet Volume 9.4 fl (7.4-10.4); Monocytes # 0.6 K/mm3 (0.1-1.0); Monocytes % 9.1 % (1.7-9.3); Neutrophils # 4.5 K/mm3 (1.8-7.8); Neutrophils % 75.6 % (37.0-80.0); Platelet Count 141 K/mm3 (142-424); Red Blood Count 4.04 M/mm3 (4.60-6.20); Red Cell Distribution Width 14.7 % (11.5-17.5)
[2023-03-08 15:15] LABS: Alanine Aminotransferase 17 U/L (12-78); Albumin/Globulin Ratio 2.1 (1.1-1.8); Alkaline Phosphatase 75 U/L (38-126); Anion Gap 7.6 mEq/L (5-15); Aspartate Amino Transferase 26 U/L (17-59); Bilirubin,Total 0.5 mg/dl (0.2-1.3); Blood Urea Nitrogen 13 mg/dl (9-20); Calcium 8.7 mg/dl (8.4-10.2); Carbon Dioxide 27 mmol/L (22.0-30.0); Chloride 107 mmol/L (98-107); Chol/HDL Ratio 2.8 (1-3.5); Cholesterol 119 mg/dl (140-200); Estimated Glomerular Filt Rate 65 ml/min (>60); GFR (African American) 79 ML/MIN (>60); Globulin 1.9 g/dL (1.3-3.2); Glucose 69 mg/dl (74-100); HDL Cholesterol 42 mg/dl (40-60); Potassium 4.6 mmoL/L (3.5-5.1); Sodium 137 mmol/L (136-145); Total Protein,Serum 5.9 g/dl (6.3-8.2); Triglycerides 123 mg/dl (30-150); VLDL Cholesterol 25 mg/dL (0-40)
[2023-03-08 15:26] LABS: Direct LDL Cholesterol 58.72 mg/dL (100-129)
[2023-03-08 15:46] LABS: Prostate Specific Ag Screen 0.9 ng/ml (0.0-4.0)
== END ==
PROVIDERS: PCP Internal Medicine; Visit Provider Internal Medicine
DX: I10 Essential (primary) hypertension (principal); E78.5 Hyperlipidemia, unspecified; D64.9 Anemia, unspecified; Z12.5 Encounter for screening for malignant neoplasm of prostate
CPT/HCPCS: 80053; 80061; 85025; G0103

== ENCOUNTER 2023-06-21 08:00 | Outpatient (RCR) | payer MEDICARE, SELFPAY | END 2023-06-21 09:10 | disposition home or self-care (01) | LOC: OT 08:00 | PROVIDERS: PCP Internal Medicine; Visit Provider Orthopaedic Surgery Sports Medicine | DX: M12.01 Chronic postrheumatic arthropathy [Jaccoud], shoulder (principal) | CPT/HCPCS: 97010; 97014; 97110; 97140; 97164; 97166; 97530; G0283 ==

== ENCOUNTER → 2023-09-12 10:16 | Outpatient (POV) | payer MEDICARE, SELFPAY | PROVIDERS: Visit Provider Dermatology | DX: Z00.00 Encounter for general adult medical examination without abnormal findings (principal) ==

== ENCOUNTER → 2023-09-13 13:50 | Outpatient (CLI) | payer MEDICARE, SELFPAY ==
[2023-09-13 15:44] LABS: Basophils % 0.5 % (0.1-2.0); Eosinophils # 0.1 K/mm3 (0.0-0.4); Eosinophils % 1.8 % (0.1-12.0); Hematocrit 43.1 % (42.0-52.0); Hemoglobin 14.3 g/dL (14.1-18.0); Lymphocytes # 0.8 K/mm3 (0.7-4.5); Lymphocytes % 13.4 % (10-50); Mean Corpuscular HGB Conc 33.2 g/dL (31.8-35.4); Mean Corpuscular Hemoglobin 36.2 pg (27.0-31.2); Mean Corpuscular Volume 108.9 fl (80-94); Mean Platelet Volume 9.4 fl (7.4-10.4); Monocytes # 0.5 K/mm3 (0.1-1.0); Monocytes % 8.8 % (1.7-9.3); Neutrophils # 4.5 K/mm3 (1.8-7.8); Neutrophils % 75.6 % (37.0-80.0); Platelet Count 141 K/mm3 (142-424); Red Blood Count 3.96 M/mm3 (4.60-6.20); Red Cell Distribution Width 14.2 % (11.5-17.5); White Blood Count 5.9 K/mm3 (4.8-10.8)
[2023-09-13 16:34] LABS: Alanine Aminotransferase 22 U/L (12-78); Albumin Level 4.4 g/dl (3.5-5.0); Alkaline Phosphatase 76 U/L (38-126); Anion Gap 14.8 mEq/L (5-15); Aspartate Amino Transferase 33 U/L (17-59); Bilirubin,Total 0.7 mg/dl (0.2-1.3); Blood Urea Nitrogen 14 mg/dl (9-20); Calcium 9.7 mg/dl (8.4-10.2); Carbon Dioxide 26 mmol/L (22.0-30.0); Chloride 105 mmol/L (98-107); Chol/HDL Ratio 2.4 (1-3.5); Cholesterol 121 mg/dl (140-200); Estimated Glomerular Filt Rate 72 ml/min (>60); GFR (African American) 88 ML/MIN (>60); Globulin 2.2 g/dL (1.3-3.2); Glucose 72 mg/dl (74-100); HDL Cholesterol 50 mg/dl (40-60); Potassium 4.8 mmoL/L (3.5-5.1); Sodium 141 mmol/L (136-145); Total Protein,Serum 6.6 g/dl (6.3-8.2); Triglycerides 76 mg/dl (30-150); VLDL Cholesterol 15 mg/dL (0-40)
[2023-09-13 16:45] LABS: Direct LDL Cholesterol 58.13 mg/dL (100-129)
== END ==
PROVIDERS: PCP Internal Medicine; Visit Provider Internal Medicine
DX: I10 Essential (primary) hypertension (principal); Z79.899 Other long term (current) drug therapy
CPT/HCPCS: 80053; 80061; 85025

== ENCOUNTER 2023-12-12 10:16 | Outpatient (CLI) | payer MEDICARE, SELFPAY ==
--- NOTE | 2023-12-12 10:25 | XR_ITS ---
FINAL REPORT CLINICAL HISTORY: COUGH, SHORTNESS OF BREATH, COPD COMPARISON: 01/29/2023 FINDINGS: TWO-VIEW CHEST The heart size is normal. The mediastinum is normal. There is mild left base atelectasis or scar. There are severe degenerative changes in the thoracic spine with multilevel fusion. There is no pneumothorax. IMPRESSION: Left base atelectasis or scar. Reviewed, Interpreted and Dictated by Simone Kumar III, MD Transcribed by Olimpia Garcia Authenticated and [facility]
[2023-12-18 09:08] LABS: Bordetella parapertussis DNA NEGATIVE; Bordetella pertussis DNA NEGATIVE
== END 2023-12-12 23:59 ==
LOC: LAB 10:18
PROVIDERS: PCP Internal Medicine; Visit Provider Internal Medicine
DX: R06.02 Shortness of breath (principal); R05.9 Cough, unspecified; J44.1 Chronic obstructive pulmonary disease with (acute) exacerbation
CPT/HCPCS: 71046; 87798

== ENCOUNTER 2024-01-29 13:06 | Outpatient (CLI) | payer MEDICARE, SELFPAY | END 2024-01-29 23:59 | LOC: LAB.DROPOF 13:07 | PROVIDERS: PCP Internal Medicine; Visit Provider Internal Medicine | DX: H10.31 Unspecified acute conjunctivitis, right eye (principal); B96.89 Other specified bacterial agents as the cause of diseases classified elsewhere | CPT/HCPCS: 87070; 87205 ==

== ENCOUNTER 2024-03-12 14:05 | Outpatient (CLI) | payer MEDICARE, SELFPAY ==
[2024-03-12 15:04] LABS: Basophils % 0.5 % (0.1-2.0); Eosinophils # 0.1 K/mm3 (0.0-0.4); Eosinophils % 1.4 % (0.1-12.0); Hematocrit 42.7 % (42.0-52.0); Hemoglobin 13.3 g/dL (14.1-18.0); Lymphocytes # 0.9 K/mm3 (0.7-4.5); Lymphocytes % 13.8 % (10-50); Mean Corpuscular HGB Conc 31.2 g/dL (31.8-35.4); Mean Corpuscular Hemoglobin 34.5 pg (27.0-31.2); Mean Corpuscular Volume 110.6 fl (80-94); Mean Platelet Volume 8.9 fl (7.4-10.4); Monocytes # 0.6 K/mm3 (0.1-1.0); Monocytes % 8.7 % (1.7-9.3); Neutrophils # 4.7 K/mm3 (1.8-7.8); Neutrophils % 75.6 % (37.0-80.0); Platelet Count 189 K/mm3 (142-424); Red Blood Count 3.86 M/mm3 (4.60-6.20); Red Cell Distribution Width 15.8 % (11.5-17.5); White Blood Count 6.3 K/mm3 (4.8-10.8)
[2024-03-12 15:24] LABS: Alanine Aminotransferase 17 U/L (12-78); Albumin Level 4.1 g/dl (3.5-5.0); Albumin/Globulin Ratio 1.9 (1.1-1.8); Alkaline Phosphatase 94 U/L (38-126); Anion Gap 9.7 mEq/L (5-15); Aspartate Amino Transferase 31 U/L (17-59); Bilirubin,Total 0.5 mg/dl (0.2-1.3); Blood Urea Nitrogen 15 mg/dl (9-20); Calcium 9.7 mg/dl (8.4-10.2); Carbon Dioxide 30 mmol/L (22.0-30.0); Chloride 107 mmol/L (98-107); Chol/HDL Ratio 2.3 (1-3.5); Cholesterol 132 mg/dl (140-200); Estimated Glomerular Filt Rate 65 ml/min (>60); GFR (African American) 78 ML/MIN (>60); Globulin 2.2 g/dL (1.3-3.2); Glucose 78 mg/dl (74-100); HDL Cholesterol 58 mg/dl (40-60); Potassium 4.7 mmoL/L (3.5-5.1); Sodium 142 mmol/L (136-145); Total Protein,Serum 6.3 g/dl (6.3-8.2); Triglycerides 101 mg/dl (30-150); VLDL Cholesterol 20 mg/dL (0-40)
[2024-03-12 15:35] LABS: Direct LDL Cholesterol 61.96 mg/dL (100-129)
[2024-03-12 15:54] LABS: Prostate Specific Ag Screen 0.7 ng/ml (0.0-4.0)
== END 2024-03-12 23:59 | disposition home or self-care (01) ==
LOC: LAB.DROPOF 14:06
PROVIDERS: PCP Internal Medicine; Visit Provider Internal Medicine
DX: I10 Essential (primary) hypertension (principal); Z12.5 Encounter for screening for malignant neoplasm of prostate; K21.9 Gastro-esophageal reflux disease without esophagitis; K51.90 Ulcerative colitis, unspecified, without complications; I51.9 Heart disease, unspecified; M47.817 Spondylosis without myelopathy or radiculopathy, lumbosacral region; J44.9 Chronic obstructive pulmonary disease, unspecified; E78.5 Hyperlipidemia, unspecified; M15.0 Primary generalized (osteo)arthritis
CPT/HCPCS: 80053; 80061; 85025; G0103

== ENCOUNTER 2024-07-08 08:00 | Outpatient (RCR) | payer MEDICARE, SELFPAY | END 2024-07-08 08:05 | disposition home or self-care (01) | LOC: OT 08:00 | PROVIDERS: Visit Provider Orthopaedic Surgery Sports Medicine | DX: M25.511 Pain in right shoulder (principal) | CPT/HCPCS: 97010; 97014; 97110; 97140; 97164; 97166; G0283 ==

== ENCOUNTER 2024-09-11 10:20 | Outpatient (CLI) | payer MEDICARE, SELFPAY ==
[2024-09-11 16:40] LABS: Basophils % 0.3 % (0.1-2.0); Eosinophils # 0.1 K/mm3 (0.0-0.4); Eosinophils % 2.1 % (0.1-12.0); Hematocrit 44.1 % (42.0-52.0); Hemoglobin 14.4 g/dL (14.1-18.0); Lymphocytes # 0.7 K/mm3 (0.7-4.5); Lymphocytes % 10.1 % (10-50); Mean Corpuscular HGB Conc 32.6 g/dL (31.8-35.4); Mean Corpuscular Hemoglobin 36.8 pg (27.0-31.2); Mean Corpuscular Volume 112.8 fl (80-94); Mean Platelet Volume 9.3 fl (7.4-10.4); Monocytes # 0.5 K/mm3 (0.1-1.0); Monocytes % 6.7 % (1.7-9.3); Neutrophils # 5.7 K/mm3 (1.8-7.8); Neutrophils % 80.9 % (37.0-80.0); Platelet Count 144 K/mm3 (142-424); Red Blood Count 3.91 M/mm3 (4.60-6.20); Red Cell Distribution Width 14.2 % (11.5-17.5)
[2024-09-11 17:54] LABS: Albumin Level 4.6 g/dl (3.5-5.0); Chloride 107 mmol/L (98-107); Potassium 5.2 mmoL/L (3.5-5.1); Sodium 141 mmol/L (136-145)
[2024-09-11 17:56] LABS: Blood Urea Nitrogen 15 mg/dl (9-20); Estimated Glomerular Filt Rate 72 ml/min (>60); GFR (African American) 87 ML/MIN (>60)
[2024-09-11 17:57] LABS: Alanine Aminotransferase 19 U/L (12-78); Albumin/Globulin Ratio 2.1 (1.1-1.8); Alkaline Phosphatase 87 U/L (38-126); Anion Gap 12.2 mEq/L (5-15); Aspartate Amino Transferase 28 U/L (17-59); Bilirubin,Total 0.7 mg/dl (0.2-1.3); Calcium 9.8 mg/dl (8.4-10.2); Carbon Dioxide 27 mmol/L (22.0-30.0); Cholesterol 143 mg/dl (140-200); Globulin 2.2 g/dL (1.3-3.2); Glucose 70 mg/dl (74-100); HDL Cholesterol 48 mg/dl (40-60); Total Protein,Serum 6.8 g/dl (6.3-8.2); Triglycerides 86 mg/dl (30-150); VLDL Cholesterol 17 mg/dL (0-40)
[2024-09-11 18:08] LABS: Direct LDL Cholesterol 61.08 mg/dL (100-129)
== END 2024-09-11 23:59 | disposition home or self-care (01) ==
LOC: LAB.DROPOF 09-12 13:35
PROVIDERS: PCP Internal Medicine; Visit Provider Internal Medicine
DX: I10 Essential (primary) hypertension (principal); E11.69 Type 2 diabetes mellitus with other specified complication; E78.5 Hyperlipidemia, unspecified
CPT/HCPCS: 80053; 80061; 85025

== ENCOUNTER 2025-01-07 11:45 | Outpatient (CLI) | payer MEDICARE, SELFPAY ==
[2025-01-07 12:06] LABS: Basophils % 0.4 % (0.1-2.0); Eosinophils # 0.1 K/mm3 (0.0-0.4); Eosinophils % 1.3 % (0.1-12.0); Hematocrit 40.5 % (42.0-52.0); Hemoglobin 13.6 g/dL (14.1-18.0); Lymphocytes # 0.8 K/mm3 (0.7-4.5); Lymphocytes % 10.1 % (10-50); Mean Corpuscular HGB Conc 33.6 g/dL (31.8-35.4); Mean Corpuscular Hemoglobin 35.9 pg (27.0-31.2); Mean Corpuscular Volume 106.9 fl (80-94); Mean Platelet Volume 10.4 fl (7.4-10.4); Monocytes # 0.8 K/mm3 (0.1-1.0); Monocytes % 10.5 % (1.7-9.3); Neutrophils # 5.9 K/mm3 (1.8-7.8); Neutrophils % 77.4 % (37.0-80.0); Platelet Count 148 K/mm3 (142-424); Red Blood Count 3.79 M/mm3 (4.60-6.20); Red Cell Distribution Width 13.1 % (11.5-17.5); White Blood Count 7.6 K/mm3 (4.8-10.8)
[2025-01-07 12:38] LABS: Albumin Level 4.3 g/dl (3.5-5.0); Chloride 105 mmol/L (98-107); Sodium 140 mmol/L (136-145)
[2025-01-07 12:39] LABS: Potassium 4.7 mmoL/L (3.5-5.1)
[2025-01-07 12:41] LABS: Alanine Aminotransferase 20 U/L (12-78); Albumin/Globulin Ratio 2.3 (1.1-1.8); Alkaline Phosphatase 79 U/L (38-126); Anion Gap 9.7 mEq/L (5-15); Aspartate Amino Transferase 29 U/L (17-59); Bilirubin,Total 0.4 mg/dl (0.2-1.3); Blood Urea Nitrogen 15 mg/dl (9-20); Calcium 9.4 mg/dl (8.4-10.2); Carbon Dioxide 30 mmol/L (22.0-30.0); Estimated Glomerular Filt Rate 65 ml/min (>60); GFR (African American) 78 ML/MIN (>60); Globulin 1.9 g/dL (1.3-3.2); Glucose 97 mg/dl (74-100); Iron 92 ug/dL (49-181); Total Protein,Serum 6.2 g/dl (6.3-8.2)
[2025-01-07 12:52] LABS: Total Iron Binding Capacity 266 ug/dL (261-462)
[2025-01-07 13:17] LABS: Ferritin 41.7 ng/ml (17.9-464)
[2025-01-07 13:29] LABS: Erythrocyte Sedimentation Rate 24 mm/hr (0-20)
== END 2025-01-07 23:59 | disposition home or self-care (01) ==
LOC: LAB 11:46
PROVIDERS: PCP Internal Medicine; Visit Provider Internal Medicine Gastroenterology
DX: K74.69 Other cirrhosis of liver (principal); B19.20 Unspecified viral hepatitis C without hepatic coma; K51.90 Ulcerative colitis, unspecified, without complications; Z51.81 Encounter for therapeutic drug level monitoring; Z79.624 Long term (current) use of inhibitors of nucleotide synthesis
CPT/HCPCS: 36415; 80053; 82728; 83540; 83550; 85025; 85651

== ENCOUNTER 2025-03-06 12:26 | Day surgery (SDC) | payer MEDICARE, SELFPAY ==
[2025-03-04 17:23] VITALS: BMI 34.4
[2025-03-06] VITALS (7 sets, daily range): BP systolic 120–147; BP diastolic 61–81; PULSE 65–84; RESP 16–20; TEMP 36.7–37.1; O2SAT 96–99
[2025-03-06] MEDS: LACTATED RINGERS 1000ML 1,000 ML 50 ML IV (13:24)
--- NOTE | 2025-03-06 13:52 | EXP.ANES.CKL ---
[facility] Disclaimer: The information contained in this section may have been updated after the patient was seen, as this information can be updated by other users. Medical History Hyperlipidemia associated with type 2 diabetes mellitus Laceration Visit for suture removal Contusion of head Back contusion Chest pain Fall (on) (from) other stairs and steps, initial encounter Atypical chest pain SVT (supraventricular tachycardia) Injury of left rotator cuff Fall Surgical History No significant past surgical history Family History Other No significant family history Social History Smoking Status: Former smoker alcohol intake: current alcohol intake frequency: holidays/special occasions only substance use type: denies use current occupational status: retired Travel in the last 8 weeks: None caffeine: Yes Have you lived/traveled outside [place] in past 30 days?: No Contact w/someone who lives/traveled outside [place] past 30 days?: No Exposure to someone with infectious disease in past 14 days?: No Do you have a fever (greater than 100.4 F or 38 C)?: No Have you tested positive for COVID-19: No Exposed to someone with COVID-19 in past 14 days?: No Do you have a sore throat?: No Do you have a cough?: No Do you have any weakness?: No Do you have any diarrhea?: No Are you experiencing any unusual bleeding?: No Do you have any muscle aches/pain?: No Do you have any abdominal pain?: No Are you experiencing loss of taste or smell?: No [facility] Anesthesia Checklist Patient Identification Patient Identification: Arm Band Structural Data Admitted From: Home Planned Operative Procedure/s: EGD Consent for Planned Operative Procedure(s) Verified: Yes Verified Documents: Surgical Consent and History and Physical NPO Status Verified Time NPO: 00:00 Additional verifications Anesthesia Reactions: No Airway Assessment Mallampati Score:: Class II C-Spine Mobility Assessed: Yes TMJ Mobility Assessed: Yes Dentition: Good Dentition Neurological Assessment Level of Consciousness: Awake, Alert and Appropriate Anesthesia Plan Anesthesia Risk discussed: Yes Anesthesia Plan: Verified ASA Class: III Anesthesia Type: MAC
--- NOTE | 2025-03-06 15:19 | EXP.HP ---
History of Present Illness *Admission Date: 03/06/25 *Reason for visit:: Chronic GERD/dysphagia *History of present illness: Mr. Silva is a 80-year-old gentleman with chronic ulcerative colitis in remission on azathioprine 150 mg daily. He is here for follow-up and azathioprine medication monitoring for labs. He reports no rectal bleeding, tenesmus, diarrhea or mucus with his bowel movements. He primarily struggles with some constipation and takes MiraLAX and stool softeners regularly which controlled bowel function. His last colonoscopy was September 2023 and he had complete colonoscopic remission of the ulcerative colitis. He did have labs in August 2024 with white blood cell count 7.0, hemoglobin 14.4, hematocrit 44.1 and platelet count of 144,000. At that time he had normal liver chemistries and normal creatinine. His PSA screening was 0.7. The patient has had chronic GERD. This is well-controlled with Nexium. He does have some dysphagia to larger tablets. This has worsened some over the last year or 2. He reports not having any prior EGD. He reports no weight loss. [facility] Disclaimer: The information contained in this section may have been updated after the patient was seen, as this information can be updated by other users. Medical History Hyperlipidemia associated with type 2 diabetes mellitus Laceration Visit for suture removal Contusion of head Back contusion Chest pain Fall (on) (from) other stairs and steps, initial encounter Atypical chest pain SVT (supraventricular tachycardia) Injury of left rotator cuff Fall Surgical History No significant past surgical history Family History Other No significant family history Social History Smoking Status: Former smoker alcohol intake: current alcohol intake frequency: holidays/special occasions only substance use type: denies use current occupational status: retired Travel in the last 8 weeks: None caffeine: Yes Have you lived/traveled outside [place] in past 30 days?: No Contact w/someone who lives/traveled outside [place] past 30 days?: No Exposure to someone with infectious disease in past 14 days?: No Do you have a fever (greater than 100.4 F or 38 C)?: No Have you tested positive for COVID-19: No Exposed to someone with COVID-19 in past 14 days?: No Do you have a sore throat?: No Do you have a cough?: No Do you have any weakness?: No Do you have any diarrhea?: No Are you experiencing any unusual bleeding?: No Do you have any muscle aches/pain?: No Do you have any abdominal pain?: No Are you experiencing loss of taste or smell?: No Other Medical History Have you received the Flu Vaccine for this season: Yes Have you received the Pneumonia Vaccine: Yes Review of Systems Review of Systems Review of systems (narrative): Negative *Cardiovascular Comments: Negative *Gastrointestinal Comments: Negative *Genitourinary Comments: Negative *Musculoskeletal Comments: Negative *Neurologic Comments: Negative Meds Home Medications and Allergies Home Medications ?Medication ?Instructions ?Recorded ?Confirmed ?Type polyethylene glycol 3350 17 gram 17 g PO DAILY stomach 03/23/18 03/04/25 History oral powder packet (Miralax) bklixusr-ts-tcvqp 300 mcg-K 60 1 each PO DAILY Supplement 09/10/20 03/04/25 History mcg-lycop 600 mcg-lutein 300 mcg tablet vitamins A,C,M-jtal-tzlpjc 2,148 1 each PO BID eyes 09/10/20 03/04/25 History mcg-113 mg-45 mg-17.4 mg tablet esomeprazole magnesium 40 mg 40 mg PO DAILY stomach #90 caps 08/28/24 03/04/25 Rx capsule,delayed release (Nexium) aspirin 81 mg tablet,delayed 81 mg PO DAILY 09/11/24 03/04/25 History release empagliflozin 10 mg tablet 10 mg PO DAILY 09/11/24 03/04/25 History (Jardiance) azathioprine 50 mg tablet 150 mg (3 x 50 mg) PO DAILY 90 01/07/25 03/04/25 Rx days #270 tabs torsemide 20 mg tablet 20 mg PO TID 01/07/25 03/04/25 History rosuvastatin 40 mg tablet See Rx Instructions .Route 01/13/25 03/04/25 Rx .COMPLEX #90 tabs valsartan 160 mg tablet See Rx Instructions .Route 01/13/25 03/04/25 Rx .COMPLEX #90 tabs New Prescriptions to Start Prescriptions: Allergies Allergy/AdvReac Type Severity Reaction Status Date / Time No Known Allergies Allergy Verified 03/06/25 13:17 Exam Data for Last 24 hours Vital signs and Labs for Last 24 Hours: Temp Pulse Resp BP Pulse Ox O2 Del Method 98.0 F 80 20 120/61 97 Room Air 03/06/25 13:18 03/06/25 13:18 03/06/25 13:18 03/06/25 13:18 03/06/25 13:18 03/06/25 13:18 I & O for Last 24 hours: Intake & Output 03/03/25 03/04/25 03/05/25 03/06/25 23:59 23:59 23:59 23:59 Weight 240 lb *Routine HEENT Exam Head: Present normocephalic Eye: Present EOMI and PERRL ENT: Present mucous membranes moist *Routine Neck Exam Neck: Present supple *Routine Respiratory Exam Respiratory: Present CTA bilaterally *Routine Cardiovascular Exam Cardiovascular: Present RRR *Routine Abdominal Exam Abdominal: Present soft and normoactive bowel sounds; Absent tenderness *Routine Rectal Exam Rectal:: deferred *Routine Genitalia Exam Genitalia:: deferred *Routine Extremities Exam Extremities: Absent cyanosis, clubbing or edema *Routine Skin Exam Skin: Present warm; Absent rash *Routine Neurological Exam Neurological: Present alert and oriented X3 Assessment and Plan *Assessment and plan (1) Dysphagia: Status: Acute Category: Medical Code(s): R13.10 - Dysphagia, unspecified (2) Chronic GERD: Status: Acute Category: Medical Code(s): K21.9 - Gastro-esophageal reflux disease without esophagitis Plan A/P: 1. Dysphagia with chronic GERD and no prior endoscopy is the preprocedural diagnosis. The patient will be anesthetized/sedated using MAC sedation. The patient has been seen and examined. Cardiac and lung assessment prior to the examination is stable. Proceed with planned diagnostic/therapeutic upper endoscopy.
--- NOTE | 2025-03-06 15:21 | P.PCN_ITS ---
[facility] Procedure Note Date: 03/06/25 Time: 15:36 Procedure Note:: Upper Endoscopy Procedure Report: Esophagogastroduodenoscopy with cold biopsies and TTS balloon dilation Endoscopost: Kev Matias II, MD Referring Physician: Tae Nuñez MD Date of Procedure: March 06, 2025 Equipment: Olympus GIF 190 standard upper endoscope Sedation: MAC sedation Indications: Mr. Silva is a 80-year-old gentleman who is here for diagnostic/therapeutic upper endoscopy secondary to chronic GERD and some dysphagia. His GERD is well-controlled with Nexium. He does have some dysphagia to some of his tablets. This has worsened some over the last couple of years. He reports not having any prior EGD. He reports no weight loss. He does have a history of chronic ulcerative colitis in remission on azathioprine 150 mg daily. He reports no rectal bleeding, tenesmus, diarrhea or mucus with his bowel movements. He primarily struggles with some constipation and takes MiraLAX and stool softeners regularly which control bowel function. His last colonoscopy was September 2023 and he had complete colonoscopic remission of the ulcerative colitis. He did have labs in August 2024 with white blood cell count 7.0, hemoglobin 14.4, hematocrit 44.1 and platelet count of 144,000. At that time he had normal liver chemistries and normal creatinine. His PSA screening was 0.7. Procedure: Prior to the procedure, a history and physical exam was performed, and patient's medications and allergies were reviewed. The risks, benefits and alternatives of the sedation and procedure were discussed with the patient. All questions were answered and informed consent was obtained. The patient was brought to the procedure room. Patient identification and proposed procedure were verified by the physician and the nurse. The patient was placed in a left lateral decubitus position and the scope was passed under direct vision. Throughout the procedure, the patient's blood pressure, pulse, and oxygen saturations were monitored continuously. The upper GI endoscopy was accomplished without difficulty. The patient tolerated the procedure well. Findings: The scope was passed directly into the upper esophagus and advanced to the third portion of the duodenum. The post bulbar duodenum, ampulla and duodenal bulb were normal with normal mucosa and conniventes. The scope was withdrawn through a normal duodenal bulb and pylorus into the stomach. There was mild antral gastropathy and mild chronic gastritis of the body and fundus. Biopsies were taken along the lesser curvature to rule out H. pylori. Upon retroflexion there was no hiatal hernia. The scope was then withdrawn into the esophagus. There was no evidence of reflux esophagitis or Franklin's. There was no Schatzki's ring, corrugation or furrowing. There were strong tertiary contractions and evidence of moderate esophageal dysmotility. The entire esophagus was dilated to 60 [place]/20 mm with a TTS hydrostatic balloon. There was some resistance at the cricopharyngeus/cricopharyngeal spasm. The remainder of the esophageal mucosa was normal. Impression: 1. Cricopharyngeal spasm status post dilation to 20 mm 2. Nonerosive GERD with moderate esophageal dysmotility 3. Mild antral gastropathy and mild chronic gastritis Plan: I will follow-up the biopsies. I do feel that his intermittent dysphagia is related to the tightness at the cricopharyngeus. I did dilate this maximally. This is often related to chronic GERD. I will discuss treatment options and discuss the findings with the patient and family.
== END 2025-03-06 16:20 | disposition home or self-care (01) ==
PROVIDERS: PCP Internal Medicine; Visit Provider Internal Medicine Gastroenterology
PROC: 0DJ08ZZ Inspection of Upper Intestinal Tract, Via Natural or Artificial Opening Endoscopic (ICD-10-PCS; CPT 43239; principal; 2025-03-06 14:00)
DX: K31.9 Disease of stomach and duodenum, unspecified (principal); K29.70 Gastritis, unspecified, without bleeding; K22.4 Dyskinesia of esophagus; R13.10 Dysphagia, unspecified; K21.9 Gastro-esophageal reflux disease without esophagitis
CPT/HCPCS: 43239; 43249; C1726; J7120

== ENCOUNTER 2025-04-17 10:00 | Outpatient (CLI) | payer MEDICARE, SELFPAY ==
[2025-04-17 14:45] LABS: Basophils % 0.5 % (0.1-2.0); Eosinophils # 0.1 Kmm3 (0.0-0.4); Eosinophils % 1.3 % (0.1-12.0); Hematocrit 39.6 % (42.0-52.0); Hemoglobin 12.8 g/dL (14.1-18.0); Immature Granulocytes # 0.06 10^3uL; Immature Granulocytes % 0.8 %; Lymphocytes # 0.7 K/mm3 (0.7-4.5); Lymphocytes % 9.2 % (10-50); Mean Corpuscular HGB Conc 32.3 g/dL (31.8-35.4); Mean Corpuscular Hemoglobin 34.3 pg (27.0-31.2); Mean Corpuscular Volume 106.2 fl (80-94); Mean Platelet Volume 10.3 fl (7.4-10.4); Monocytes # 0.8 K/mm3 (0.1-1.0); Neutrophils # 5.9 K/mm3 (1.8-7.8); Neutrophils % 78.2 % (37.0-80.0); Nucleated Red Blood Cells # 0 10^3/uL; Nucleated Red Blood Cells % 0 %; Platelet Count 205 K/mm3 (142-424); Red Blood Count 3.73 M/mm3 (4.60-6.20); Red Cell Distribution Width 12.8 % (11.5-17.5); Red Cell Distribution Width-SD 50.2 fL; White Blood Count 7.5 K/mm3 (4.8-10.8)
[2025-04-17 15:11] LABS: Alanine Aminotransferase 19 U/L (12-78); Albumin Level 4.1 g/dl (3.5-5.0); Albumin/Globulin Ratio 1.9 (1.1-1.8); Alkaline Phosphatase 86 U/L (38-126); Anion Gap 10.5 mEq/L (5-15); Aspartate Amino Transferase 25 U/L (17-59); Bilirubin,Total 0.6 mg/dl (0.2-1.3); Blood Urea Nitrogen 16 mg/dl (9-20); Calcium 9.2 mg/dl (8.4-10.2); Carbon Dioxide 29 mmol/L (22.0-30.0); Chloride 105 mmol/L (98-107); Chol/HDL Ratio 2.8 (1-3.5); Cholesterol 121 mg/dl (140-200); Estimated Glomerular Filt Rate 65 ml/min (>60); GFR (African American) 78 ML/MIN (>60); Globulin 2.2 g/dL (1.3-3.2); Glucose 71 mg/dl (74-100); HDL Cholesterol 44 mg/dl (40-60); Potassium 5.5 mmoL/L (3.5-5.1); Sodium 139 mmol/L (136-145); Total Protein,Serum 6.3 g/dl (6.3-8.2); Triglycerides 80 mg/dl (30-150); VLDL Cholesterol 16 mg/dL (0-40)
[2025-04-17 15:20] LABS: NT Pro Brain Natriuretic Pep. 118 pg/mL (0-450)
[2025-04-17 15:22] LABS: Direct LDL Cholesterol 59.27 mg/dL (100-129)
== END 2025-04-17 23:59 | disposition home or self-care (01) ==
LOC: LAB.DROPOF 23:06
PROVIDERS: PCP Internal Medicine; Visit Provider Internal Medicine
DX: I11.0 Hypertensive heart disease with heart failure (principal); I50.32 Chronic diastolic (congestive) heart failure; E78.5 Hyperlipidemia, unspecified; R60.9 Edema, unspecified
CPT/HCPCS: 80053; 80061; 83880; 85025

== ENCOUNTER 2025-08-28 08:55 | Outpatient (CLI) | payer MEDICARE, SELFPAY ==
[2025-08-28 10:42] LABS: Anion Gap 12.6 mEq/L (5-15); Blood Urea Nitrogen 17 mg/dl (9-20); Calcium 9.2 mg/dl (8.4-10.2); Carbon Dioxide 26 mmol/L (22.0-30.0); Chloride 105 mmol/L (98-107); Creatinine,Serum 1.00 mg/dl (0.66-1.25); Estimated Glomerular Filt Rate 72 ml/min (>60); GFR (African American) 87 ML/MIN (>60); Glucose 91 mg/dl (74-100); Potassium 4.6 mmoL/L (3.5-5.1); Sodium 139 mmol/L (136-145)
== END 2025-08-28 23:59 | disposition home or self-care (01) ==
LOC: LAB 08:55
PROVIDERS: PCP Internal Medicine; Visit Provider Internal Medicine Cardiovascular Disease
DX: I25.10 Atherosclerotic heart disease of native coronary artery without angina pectoris (principal); I25.83 Coronary atherosclerosis due to lipid rich plaque
CPT/HCPCS: 36415; 80048

== ENCOUNTER 2025-10-09 10:30 | Outpatient (CLI) | payer MEDICARE, SELFPAY ==
[2025-10-09 17:40] LABS: Hematocrit 38.7 % (42.0-52.0); Hemoglobin 12.6 g/dL (14.1-18.0); Immature Granulocytes % 0.4 %; Mean Corpuscular HGB Conc 32.6 g/dL (31.8-35.4); Mean Corpuscular Hemoglobin 36.2 pg (27.0-31.2); Mean Corpuscular Volume 111.2 fl (80-94); Nucleated Red Blood Cells % 0.3 %; Platelet Count 145 K/mm3 (142-424); Red Blood Count 3.48 M/mm3 (4.60-6.20); Red Cell Distribution Width-SD 55.1 fL; White Blood Count 7.9 K/mm3 (4.8-10.8)
[2025-10-09 18:23] LABS: Alanine Aminotransferase 36 U/L (12-78); Albumin Level 4.1 g/dl (3.5-5.0); Albumin/Globulin Ratio 2.0 (1.1-1.8); Alkaline Phosphatase 90 U/L (38-126); Anion Gap 10.0 mEq/L (5-15); Aspartate Amino Transferase 37 U/L (17-59); Bilirubin,Total 0.8 mg/dl (0.2-1.3); Blood Urea Nitrogen 20 mg/dl (9-20); Calcium 9.4 mg/dl (8.4-10.2); Carbon Dioxide 29 mmol/L (22.0-30.0); Chloride 106 mmol/L (98-107); Cholesterol 113 mg/dl (140-200); Creatinine,Serum 1.20 mg/dl (0.66-1.25); Estimated Glomerular Filt Rate 58 ml/min (>60); GFR (African American) 71 ML/MIN (>60); Globulin 2.1 g/dL (1.3-3.2); Glucose 67 mg/dl (74-100); HDL Cholesterol 59 mg/dl (40-60); Potassium 5.0 mmoL/L (3.5-5.1); Sodium 140 mmol/L (136-145); Total Protein,Serum 6.2 g/dl (6.3-8.2); Triglycerides 67 mg/dl (30-150)
== END 2025-10-09 23:59 ==
LOC: LAB.DROPOF 10-13 09:09
PROVIDERS: PCP Internal Medicine; Visit Provider Internal Medicine
DX: E78.5 Hyperlipidemia, unspecified (principal); Z51.81 Encounter for therapeutic drug level monitoring; Z79.624 Long term (current) use of inhibitors of nucleotide synthesis; K51.90 Ulcerative colitis, unspecified, without complications; I11.0 Hypertensive heart disease with heart failure; I50.32 Chronic diastolic (congestive) heart failure; Z12.5 Encounter for screening for malignant neoplasm of prostate
CPT/HCPCS: 80053; 80061; 85025; G0103